=== PATIENT | female | born 1975 | race Caucasian/White ===

== ENCOUNTER 2016-12-10 07:39 | Day surgery (SDC) | payer BC ==
[~2016-12-10] VITALS: Ht 170.2 cm; Wt 102.2 kg
[~2016-12-10 07:39] MED LIST: FAMOTIDINE10 M1 PO; IBUPROFEN800 MG PO; LEVOXYL112 MCG PO; LEVOXYL125 MCG PO; LEVOXYL137 MCG PO; LEXAPRO10 MG PO; PERCOCET 5/31 TABLET PO; PRENATAL ONE T1 EACH PO; VITAMIN D-32000 UNI2 PO; ZYRTEC10 M2 PO
[2016-12-10 08:43] VITALS: BP 99/61
[2016-12-10] MEDS ORDERED: IBUPROFEN800 MG PO (10:42)
[2016-12-10] MEDS ORDERED: ENDOCET 5-3251 EACH PO (10:42)
[2016-12-10 11:25] VITALS: BP 88/57
[2016-12-10 12:17] VITALS: BP 106/56
== END 2016-12-10 12:29 | disposition home or self-care (01) ==
LOC: SDC 07:39
PROC: 0UB74ZZ Excision of Bilateral Fallopian Tubes, Percutaneous Endoscopic Approach (ICD-10-PCS; principal; 2016-12-10)
DX: Z30.2 Encounter for sterilization (principal); Z87.891 Personal history of nicotine dependence; E06.3 Autoimmune thyroiditis; J45.909 Unspecified asthma, uncomplicated; K21.9 Gastro-esophageal reflux disease without esophagitis
CPT/HCPCS: 88302; J1100; J1885; J2250; J2405; J3010; Q0175